=== PATIENT | male | born 1960 | race Caucasian/White ===

== ENCOUNTER 2017-05-28 02:09 | Inpatient (IN) | payer MEDICARE ==
--- NOTE | 2017-05-25 04:14 | LEVENE H&P ---
DATE OF ADMISSION: May 28, 2017 IDENTIFICATION/CHIEF COMPLAINT The patient is a 56-year-old gentleman with chief complaint of right knee pain. HISTORY OF PRESENT ILLNESS Patient has longstanding history of knee arthritis, progressively painful and debilitating, refractory to conservative care. Surgery is indicated to relieve symptoms after failure of nonoperative measures. PAST MEDICAL HISTORY Notable for hypertension, history of DVT and pulmonary embolus, sleep apnea, remote history of pneumonia, acid reflux disease. PAST SURGICAL HISTORY Notable for treatment of a thumb infection, neck fusion and back fusion. ALLERGIES He gets some blistering with ADHESIVES, but has no true drug allergies. CURRENT MEDICATIONS 1. Lisinopril 10 mg p.o. daily. 2. Hydrochlorothiazide 25 mg p.o. daily. 3. Gabapentin 300 mg b.i.d. 4. Xarelto 20 mg p.o. daily. 5. Nexium 60 mg daily. 6. Oxycodone as needed for pain. FAMILY HISTORY Notable for a father with cancer. SOCIAL HISTORY Negative for tobacco use. He drinks a glass of wine per week, denies abuse. REVIEW OF SYSTEMS Negative. PHYSICAL EXAMINATION GENERAL: This is a well-developed male who appears stated age. HEENT: Normocephalic, atraumatic. NECK: Supple. LUNGS: Clear. HEART: Regular. ABDOMEN: Soft. ORTHOPEDIC EXAMINATION: The right knee has an effusion. He has crepitus. He is stiff at the end range. Extensor function is intact. Gross stability is good. Skin envelope is intact. Calves nontender. Neurovascular function is intact. RADIOGRAPHIC DATA Radiographs demonstrate endstage knee arthritis. ASSESSMENT Right knee end-stage degenerative joint disease, progressively painful and debilitating, refractory to conservative care. PLAN Per patient request, we are going to proceed with total knee arthroplasty. The nature of the procedure, the risks, benefits and nonoperative alternatives were reviewed. The risks of the procedure include but are not limited to , major medical or anesthetic complication, infection, neurovascular injury, blood transfusion, stiffness, scarring, fracture, tendon rupture, instability, implant loosening, migration or failure, persistent or recurrent pain, need for additional surgery and other unforeseen. He understands and wishes to proceed. A signed permit is placed in the chart. No guarantees are given or implied. IWONA
[2017-05-27 15:34] LABS: INR 1.06
[2017-05-28] VITALS (13 sets, daily range): BP systolic 137–164; BP diastolic 70–96
[~2017-05-28] VITALS: Ht 180.3 cm; Wt 112.5 kg
[~2017-05-28 02:09] MED LIST: GABA-549 PO; HYDR-2966 PO; HYDR-4225 PO; LISI-362 PO; METH-280 PO; METH2.5T43 PO; OXYC15TA79 PO; RIVA20TA PO; TIZA4CAP3 PO; ZOLP-350 PO; [UNRECOGNIZED DRUG - CODE] PO
[2017-05-28] MEDS ORDERED: PROPOFOL EMUL(*) 10MG/ML 20 ML 20 ML ONE (08:01)
[2017-05-28] MEDS ORDERED: LIDOCAINE MPF 1% 5 ML VIAL ONE (08:01)
[2017-05-28] MEDS ORDERED: fentaNYL CITR 100 MCG/2 ML AMP ONE ×7 (08:01→13:15)
[2017-05-28] MEDS ORDERED: MORPHINE PF 5 MG/10 ML AMP ONE (08:01)
[2017-05-28] MEDS ORDERED: ONDANSETRON 4 MG/2 ML VIAL ONE (08:01)
[2017-05-28] MEDS ORDERED: DEXAMETHASONE SOD 4 MG/ML VIAL ONE (08:01)
[2017-05-28] MEDS ORDERED: ceFAZolin(*) 2GM/D5W 50ML 50 ML IVPB ONE (09:15)
[2017-05-28] MEDS ORDERED: LIDOCAINE/SOD BICARB 8.4% SYR ID ONE (09:15)
[2017-05-28] MEDS ORDERED: TRANEXAMIC AC 1000 MG/10ML SDV 1,000 MG in DEXTROSE 5% 50 ML BAG 50 ML IV ONE (09:15)
[2017-05-28] MEDS ORDERED: MIDAZOLAM 2 MG/2 ML VIAL IVP PRN (09:15)
[2017-05-28] MEDS ORDERED: NORMOSOL R SOLN(*) 1000 ML BAG 1,000 ML IV PRN ×2 (09:15→12:25)
[2017-05-28] MEDS ORDERED: FAMOTIDINE 20 MG TAB PO ONE (09:15)
[2017-05-28] MEDS ORDERED: cloNIDine EPIDUR INJ 100MCG/ML 40 MCG, ROPIVACAINE 0.5% 20 ML VIAL 25 ML, EPINEPHrine H... INJ ONE (09:15)
[2017-05-28] MEDS ORDERED: HYDROmorphone HCL 2 MG/ML SDV ONE ×2 (09:34→10:12)
[2017-05-28] MEDS: HYDROmorphone HCL 2 MG/ML SDV ONE ×2 (12:04→12:15)
[2017-05-28] MEDS ORDERED: diphenhydrAMINE 50 MG/ML VIAL IVP PRN (12:25)
[2017-05-28] MEDS ORDERED: MAGNESIUM HYDROXIDE* 30ML UDCP PO PRN (12:25)
[2017-05-28] MEDS ORDERED: FLUSH 10 ML SYR IVP PRN (12:25)
[2017-05-28] MEDS ORDERED: BISACODYL 10 MG SUPP PR PRN (12:25)
[2017-05-28] MEDS ORDERED: ZOLPIDEM TARTRATE 5 MG TAB PO PRN (12:25)
[2017-05-28] MEDS ORDERED: diphenhydrAMINE 25 MG CAP PO PRN (12:25)
[2017-05-28] MEDS ORDERED: ACETAMINOPHEN 325 MG TAB PO PRN (12:25)
[2017-05-28] MEDS ORDERED: PROMETHAZINE 25 MG/ML 1 ML AMP IVP PRN (12:25)
[2017-05-28] MEDS ORDERED: BENZOCAINE/MENTHOL 1 EACH LOZG PO PRN (12:25)
[2017-05-28] MEDS: APAP/HYDROCODONE 325/7.5 TAB PO PRN ×2 (14:53→20:12)
--- NOTE | 2017-05-28 15:34 | RADIOLOGY IMAGING REPORT ---
FACILITY: [facility] - [place] PATIENT NAME: Boris Donahue : 1960 MR: [id number] V: [id number] EXAM DATE: ORDERING PHYSICIAN: LISA NETTLES TECHNOLOGIST: Location: [facility] - [place] Patient: Boris Doanhue : 1960 Visit/Account:[id number] Date of Sevice: 05/28/2017 Exam type: KNEE LIMITED RIGHT History: CONFIRM PLACEMENT Comparison: None. Findings: Two views of the right knee demonstrate a right knee arthroplasty in good anatomic alignment. Soft t issue gas and skin chasidy project over the anterior aspect of this postoperative knee IMPRESSION: 1. As above Report Dictated By: Moira Steiner MD at 05/28/2017 3:29 PM Report E-Signed By: Moira Steiner MD at 05/28/2017 3:29 PM WSN:[id number]
[2017-05-28] MEDS ORDERED: NAPR-1043 PO (16:19)
[2017-05-28] MEDS ORDERED: ESCI20TA38 PO (16:19)
[2017-05-28] MEDS ORDERED: FLUT16SP19 NS (16:19)
[2017-05-28] MEDS ORDERED: OXYC20OR PO (16:19)
[2017-05-28] MEDS ORDERED: OXYC-823 PO (16:19)
[2017-05-28] MEDS ORDERED: QUET300T18 PO (16:19)
[2017-05-28] MEDS: CELECOXIB 200 MG CAP PO SCH (17:00)
[2017-05-28] MEDS: DIAZEPAM 5 MG TAB PO PRN ×2 (17:00→23:02)
[2017-05-28] MEDS: ceFAZolin 1 GM VIAL IVPB SCH (17:01)
[2017-05-28] MEDS: CETIRIZINE HCL 10 MG TAB PO SCH (20:13)
[2017-05-28] MEDS: TRIAMCINOLONE ACE 0.1% CR 15GM TP SCH (20:57)
[2017-05-28] MEDS ORDERED: FLUTICASONE PROP 0.05% 16 GM ENA PRN (23:30)
--- NOTE | 2017-05-29 00:08 | Hospitalist Progress Note ---
Subjective Progress Notes Subjective No cp/sob. No concerns from the staff. He is reporting knee pain. EBL 100cc. 2100cc of crystalloid, TXA, and dexamethasone given intra-op. Physical Exam Vital Signs Date Time Temp Pulse Resp B/P (MAP) Pulse Ox O2 Delivery O2 Flow Rate FiO2 05/28/17 23:07 98.7 84 18 157/96 (116) 97 Nasal Cannula 2.0 Intake and Output 05/29/17 07:00 Intake Total 3730 ml Output Total 400 ml Balance 3330 ml Intake Oral 1180 ml IV Total 2550 ml Output Urine Total 400 ml General Appearance: Alert, Awake, No Acute Distress Cardiovascular: Regular Rate and Rhythm Respiratory: Clear to Auscultation Extremities: No Edema Assessment and Plan Problems: (1) Status post knee replacement Status: Acute Assessment & Plan: No CV/pulmonary issues. Dr. Alatorre has written for Xarelto 10mg a day for blood clot prevention. See below. BMP daily. Pre-op creatinine was 1.2. (2) History of pulmonary embolism Status: Chronic Assessment & Plan: He reports 2 PE in his lifetime with the most recent being in 2014 associated with a pneumonia. He is on Xarelto 20mg a day, which should be restarted in a couple of days, but will be on 10mg a day for now. Of note, he was given TXA during surgery. (3) Chronic pain Status: Chronic Assessment & Plan: He has reduced his chronic dosing to MS Contin 30mg in the morning and 15mg at night. Will continue along with prn Vicodin, per Dr. Alatorre. Will continue Gabapentin and prn Tizanidine. (4) HTN (hypertension) Status: Chronic Assessment & Plan: Continue HCTZ and lisinopril with parameters bilaterally. (5) Bipolar disorder Status: Chronic Assessment & Plan: Continue Seroquel and Lexapro. Exam Sepsis Risk: No Definite Risk Problem Qualifiers (1) Status post knee replacement: Laterality: right Qualified Codes: Z96.651 - Presence of right artificial knee joint ASHLIE OLIVEIRA MD May 29, 2017 00:08
[2017-05-29] MEDS: MORPHINE CR 15 MG TABCR PO SCH ×3 (00:40→20:31)
[2017-05-29] MEDS: GABAPENTIN 300 MG CAP PO SCH ×3 (00:40→20:31)
[2017-05-29] MEDS: QUEtiapine FUM 100 MG TAB PO SCH ×3 (00:41→20:31)
[2017-05-29] MEDS: ceFAZolin 1 GM VIAL IVPB SCH ×2 (00:42→08:49)
[2017-05-29] MEDS: APAP/HYDROCODONE 325/7.5 TAB PO PRN ×2 (02:33→08:04)
[2017-05-29 02:38] VITALS: BP 147/80
--- NOTE | 2017-05-29 04:39 | LEVENE TKA ---
EVENT DATE: May 28, 2017 SURGEON: Ole Alatorre MD ANESTHESIOLOGIST: Rylan Cristina MD ANESTHESIA: General plus spinal. SIGNAL SUPERVISOR: Boris Suarez PA-C PREOPERATIVE DIAGNOSIS Right knee degenerative joint disease. POSTOPERATIVE DIAGNOSIS Right knee degenerative joint disease. PROCEDURE PERFORMED Right total knee arthroplasty. ESTIMATED BLOOD LOSS Minimal. DRAINS None. SPECIMENS None. COMPLICATIONS No apparent. TOURNIQUET TIME 64 minutes IMPLANTS USED Growishathlon knee system, a 7 right PS femur, 7 standard tibial baseplate, 36 mm universal symmetric all polyethylene patella button and a 7 x 13 PS tibial tray liner. Polyethylene is X3. INDICATIONS The patient is a 56-year-old gentleman with intractable pain and disability related to end-stage knee arthritis. Surgery is indicated to relieve symptoms after failure of nonoperative measures. DESCRIPTION OF PROCEDURE The patient was taken to the operating room. He was placed supine on the operating table. General anesthesia was induced after spinal block was administered by the anesthesiologist. Antibiotics and TXA were administered IV. Right lower extremity was prepped and draped in the usual sterile fashion for knee arthroplasty. The limb was exsanguinated with an Esmarch bandage. The tourniquet was inflated to 250 mmHg. A midline longitudinal incision was made, carried down through the skin and subcu to the extensor mechanism. A full -thickness flap was developed far enough medially to allow medial parapatellar arthrotomy to be performed. The patella was everted. The knee was brought into a flexed position. The fat pad, anterior horns of the menisci and cruciate ligaments were debrided. Subperiosteal capsule release was performed 1 cm circumferentially around the upper tibial plateau. A step drill was used to enter the distal femur. A 10-inch long alignment guide was used to engage the isthmus. Cut was set for 5 degrees of valgus relative to the anatomic axis. A 10 mm resection block was applied, pinned. Distal femoral cut was made with an oscillating saw. He has significant lateral femoral condyle hypoplasia, so the posterior condyles cannot be used to reference his rotation. The epicondyles are palpated, and transepicondylar axis is marked, and the AP sizing guide is referenced off the transepicondylar axis for a neutral position relative to this axis. This also coincides with the white sides line. The size 7 was optimal without risk of notching. The four-in-one cutting block was applied. Anterior, posterior, posterior chamfer and anterior chamfer cuts were made respectively. There was no contact on the posterior chamfer on the posterior cut on the femoral condyle laterally. The PS block is applied, centered mediolateral. Bone is removed for the box. Trial femur has nice fit. Attention was turned to tibial preparation. The extramedullary guide was applied and positioned for varus, valgus, posterior slope and rotation. This was set to resected 2 mm from the relatively deficient lateral tibial plateau. This was dropped down a couple millimeters to ensure an adequate cut. Block was pinned. Extramedullary alignment check was made, and the cut was made with an oscillating saw. At this point, initial gap balancing consisted of recessing the popliteus off the femur. IT band was released off Gerdy's tubercle subperiosteally, and some of the posterolateral capsule was released subperiosteally with a Cortes elevator. This gets nice balance. The size [address] was optimal without risk of overhand. This was inserted along with a trial liner and liner femur. Knee was brought to full extension. the patella was taken from a starting thickness of 24 to residual of 14 with a patellar clamp, oscillating saw. The 36 provides optimum bony coverage without soft tissue overhang. Lug holes were drilled. In order to ensure appropriate patellar tracking, an inside out lateral release was required. This was performed with electrocautery. Hemostasis was ensured at the site of the superior lateral geniculate. Final tibial preparation consists of ensuring appropriate rotational and translational position of the component. Box is reamed. Fin is punched. Sclerotic surfaces, particularly lateral condyle, are perforated extensively with a small drill bit to facilitate cement interdigitation. A mix of polymethylmethacrylate was made and components were cemented in a single stage. When the cement was fully polymerized, tourniquet was deflated. Hemostasis was ensured. The wound was copiously lavaged. The 13 PS tibial tray liner fills up the gap ideally, allowing the knee to drop to full extension without hyperextension, providing optimal soft tissue tension. Tray was lavaged and dried. Actual liner was locked into the base plate. Joint was reduced. Arthrotomy was closed in flexion with #2 Ethibond suture. Subcu was with 3-0 Vicryl, and skin with surgical chasidy. Xeroform was applied followed by a dry, sterile dressing and a compression wrap. The patient was awakened from the anesthesia and taken to the recovery room in stable condition, having tolerated the procedure well. Plan is for TK rehab protocol. MTDD
[2017-05-29] MEDS: DIAZEPAM 5 MG TAB PO PRN ×2 (05:23→11:20)
[2017-05-29 07:22] VITALS: BP 133/78
[2017-05-29] MEDS ORDERED: FLUTICASONE PROP 0.05% 16 GM ENA PRN (07:30)
[2017-05-29] MEDS ORDERED: SALINE 0.65% NAS SPR 44 ML BTL PRN (08:05)
--- NOTE | 2017-05-29 08:19 | Hospitalist Progress Note ---
Subjective Progress Notes Subjective Pain control is reasonable. Dry nasal passages which he always treats with saline at home. Physical Exam Vital Signs Date Time Temp Pulse Resp B/P (MAP) Pulse Ox O2 Delivery O2 Flow Rate FiO2 05/29/17 07:22 98.6 84 20 133/78 (96) 92 Oxy Mask 05/29/17 02:38 1.0 General Appearance: Alert, Awake, No Acute Distress, Afebrile Cardiovascular: Regular Rate and Rhythm Respiratory: Clear to Auscultation Integumentary: Other (No evidence for TP. ) Psych: Alert & Oriented X3, Appropriate Mood & Affect Result Diagram: 05/29/17 0545 Assessment and Plan Problems: (1) Status post knee replacement Status: Acute Assessment & Plan: No CV/pulmonary issues. Dr. Alatorre has written for Xarelto 10mg a day for blood clot prevention. I spoke to Dr. Alatorre this morning and suggested that we switch to 20 mg a day in light of previous history of VTE. See below. BMP daily. Pre-op creatinine was 1.2 but is down to 1.0 this morning. (2) History of pulmonary embolism Status: Chronic Assessment & Plan: He reports 2 PE in his lifetime with the most recent being in 2015 associated with a pneumonia. He is on Xarelto 20mg a day at home and this will be started today, not the 10 mg dose. (3) Chronic pain Status: Chronic Assessment & Plan: He has reduced his chronic dosing to MS Contin 30mg in the morning and 15mg at night. Will continue along with prn Vicodin, per Dr. Alatorre. Will continue Gabapentin and prn Tizanidine. (4) HTN (hypertension) Status: Chronic Assessment & Plan: Continue HCTZ and lisinopril with parameters bilaterally. (5) Bipolar disorder Status: Chronic Assessment & Plan: Continue Seroquel and Lexapro. Time Spent on Plan of Care: < 30 min Exam Sepsis Risk: No Definite Risk Problem Qualifiers (1) Status post knee replacement: Laterality: right Qualified Codes: Z96.651 - Presence of right artificial knee joint ARETHA JORDAN MD FACP May 29, 2017 08:19
[2017-05-29] MEDS: CELECOXIB 200 MG CAP PO SCH ×2 (08:47→17:39)
[2017-05-29] MEDS: HYDROCHLOROTHIAZIDE 25 MG TAB PO SCH (08:48)
[2017-05-29] MEDS: LISINOPRIL 10 MG TAB PO SCH (08:48)
[2017-05-29] MEDS: ESCITALOPRAM OXALATE 10 MG TAB PO SCH (08:49)
[2017-05-29] MEDS: RIVAROXABAN 10 MG TAB PO SCH (08:49)
[2017-05-29] MEDS: TRIAMCINOLONE ACE 0.1% CR 15GM TP SCH ×2 (08:49→20:32)
[2017-05-29] MEDS ORDERED: RIVAROXABAN 10 MG TAB PO SCH (09:00)
[2017-05-29 11:08] VITALS: BP 140/73
[2017-05-29 12:40] VITALS: Ht 180.3 cm; Wt 112.5 kg
[2017-05-29 15:42] VITALS: BP 143/81
[2017-05-29 19:47] VITALS: BP 153/86
[2017-05-29] MEDS: CETIRIZINE HCL 10 MG TAB PO SCH (20:31)
[2017-05-29 21:54] VITALS: BP 141/79
[2017-05-30] MEDS: APAP/HYDROCODONE 325/7.5 TAB PO PRN ×2 (01:39→07:30)
[2017-05-30 03:37] VITALS: BP 167/95
[2017-05-30] MEDS: DIAZEPAM 5 MG TAB PO PRN (06:12)
[2017-05-30] MEDS: CELECOXIB 200 MG CAP PO SCH (07:30)
[2017-05-30 07:50] VITALS: BP 134/80
[2017-05-30] MEDS: MORPHINE CR 15 MG TABCR PO SCH (08:29)
[2017-05-30] MEDS: GABAPENTIN 300 MG CAP PO SCH (08:29)
[2017-05-30] MEDS: LISINOPRIL 10 MG TAB PO SCH (08:29)
[2017-05-30] MEDS: HYDROCHLOROTHIAZIDE 25 MG TAB PO SCH (08:29)
[2017-05-30] MEDS: QUEtiapine FUM 100 MG TAB PO SCH (08:30)
[2017-05-30] MEDS: TRIAMCINOLONE ACE 0.1% CR 15GM TP SCH (08:30)
[2017-05-30] MEDS: ESCITALOPRAM OXALATE 10 MG TAB PO SCH (08:30)
[2017-05-30] MEDS: RIVAROXABAN 10 MG TAB PO SCH (08:30)
--- NOTE | 2017-05-30 08:36 | Hospitalist Progress Note ---
Subjective Progress Notes Subjective Pain control is fairly good this morning although he was self medicating yesterday and drowsy most of the day. He is doing well with PT and would like to go home today. No bleeding problems. O2 sats are low on Room Air and he says he has had problems with this for years and uses O2 during the night at home. Advised to use the O2 during the day as well for the next 1-2 weeks until fully active and Hgb improved post op. Physical Exam Vital Signs Date Time Temp Pulse Resp B/P (MAP) Pulse Ox O2 Delivery O2 Flow Rate FiO2 05/30/17 07:50 98.3 85 16 134/80 (98) 92 Nasal Cannula 1.0 General Appearance: Alert, Awake, No Acute Distress, Afebrile Cardiovascular: Regular Rate and Rhythm Respiratory: Clear to Auscultation Integumentary: Other (No evidence for VTE.) Psych: Alert & Oriented X3, Appropriate Mood & Affect Result Diagram: 05/30/17 0529 Assessment and Plan Problems: (1) Status post knee replacement Status: Acute Assessment & Plan: No CV/pulmonary issues. Dr. Alatorre has written for Xarelto 10mg a day for blood clot prevention. In light of previous history of VTE, he is now on xarelto 20 mg po daily. Pre-op creatinine was 1.2 but is down to 0.8 this morning. (2) History of pulmonary embolism Status: Chronic Assessment & Plan: He reports 2 PE in his lifetime with the most recent being in 2015 associated with a pneumonia. He is on Xarelto 20mg a day. (3) Chronic pain Status: Chronic Assessment & Plan: He has reduced his chronic dosing to MS Contin 30mg in the morning and 15mg at night. Will continue along with prn Vicodin, per Dr. Alatorre. Will continue Gabapentin and prn Tizanidine. (4) HTN (hypertension) Status: Chronic Assessment & Plan: Continue HCTZ and lisinopril with parameters bilaterally. (5) Bipolar disorder Status: Chronic Assessment & Plan: Continue Seroquel and Lexapro. (6) Hypoventilation associated with obesity Status: Chronic Assessment & Plan: Will continue O2 at night as usual and be on O2 during the day at 2L/min for the next 1-2 weeks. Time Spent on Plan of Care: > 30 min Exam Sepsis Risk: No Definite Risk Problem Qualifiers (1) Status post knee replacement: Laterality: right Qualified Codes: Z96.651 - Presence of right artificial knee joint ARETHA JORDAN MD FACP May 30, 2017 08:36
== END 2017-05-30 11:47 | disposition home or self-care (01) | DRG 470 ==
LOC: OR 02:09 → MED 14:15
PROVIDERS: ADMIT Orthopaedic Surgery; ATTEND Orthopaedic Surgery
PROC: 0SRC0J9 Replacement of Right Knee Joint with Synthetic Substitute, Cemented, Open Approach (ICD-10-PCS; principal; 2017-05-28 09:46)
PROC: 5A09357 Assistance with Respiratory Ventilation, Less than 24 Consecutive Hours, Continuous Positive Airway Pressure (ICD-10-PCS; 2017-05-28 09:46)
DX: M17.11 Unilateral primary osteoarthritis, right knee (principal); I10 Essential (primary) hypertension; K21.9 Gastro-esophageal reflux disease without esophagitis; G47.33 Obstructive sleep apnea (adult) (pediatric); F41.8 Other specified anxiety disorders; L40.50 Arthropathic psoriasis, unspecified; G89.29 Other chronic pain; F31.9 Bipolar disorder, unspecified; Z99.81 Dependence on supplemental oxygen; Z86.718 Personal history of other venous thrombosis and embolism; Z86.711 Personal history of pulmonary embolism; Z98.1 Arthrodesis status; Z79.01 Long term (current) use of anticoagulants
CPT/HCPCS: 36415; 76942; 82310; 82374; 82435; 82565; 82947; 84132; 84295; 84520; 85610; 97161; C1713; C1776; J0171; J0690; J0735; J1100; J1170; J1885; J2001; J2250; J2270; J2405; J2704; J2795; J3010; J7050; J7060; Q0163